=== PATIENT | female | born 1980 | race Two or more races ===

== ENCOUNTER → 2024-10-05 | Outpatient (CLI) | payer MEDICAID, SELFPAY ==
--- NOTE | 2024-10-05 10:00 | XR_ITS ---
Examination: Breast ultrasound, unilateral, left complete Date and time of exam: October 05, 2024 1005 hours INDICATIONS: Left breast sonogram October 07, 2023 negative for masses, BI-RADS 3 probably benign microcalcifications upper outer left breast on mammogram October 07, 2023 Technique: Real-time ferrari scale ultrasonographic imaging performed left breast including all 4 quadrants as well as nipple retroareolar and axillary region. Findings: 1:00 hyperechoic mass 12 x 10 mm 11:00 hyperechoic oval mass 10 x 11 mm Retroareolar oval mass nodule versus glandular tissue 7 x 5 mm IMPRESSION: BI-RADS Category 3: Probably benign findings Recommend 1 additional 6 month left breast sonogram follow-up to document stability of nodules described above
--- NOTE | 2024-10-05 10:30 | XR_ITS ---
Examination: Diagnostic digital mammography, unilateral, left Computer aided detection 3-D breast Tomosynthesis, unilateral Date and time of exam: October 05, 2024 0954 hours INDICATIONS: Mammogram October 07, 2023 microcalcifications upper outer left breast Technique: Nonmagnified MLO, CC views of the left breast have been obtained, reconstructed from 3-D Tomosynthesis images. R2 computer aided detection program utilized for evaluation of suspicious masses and/or abnormal calcifications. 3-D Tomosynthesis images obtained. Findings: The breast is heterogeneously dense, which may obscure small masses Benign appearing calcifications left breast Impression: BI-RADS category 2: Benign findings Recommend 6 month bilateral mammography follow-up
== END | disposition home or self-care (01) ==
PROVIDERS: PCP Physician Assistant Medical; Referring Provider Physician Assistant Medical; Visit Provider Physician Assistant Medical
DX: R92.332 Mammographic heterogeneous density, left breast (principal); R92.1 Mammographic calcification found on diagnostic imaging of breast; N63.42 Unspecified lump in left breast, subareolar; N63.22 Unspecified lump in the left breast, upper inner quadrant; N63.21 Unspecified lump in the left breast, upper outer quadrant
CPT/HCPCS: 76641; 77061; 77065; G0279